=== PATIENT | female | born 1970 | race Asian ===

== ENCOUNTER → 2022-02-16 12:52 | Outpatient (CLI) | payer OTHER, SELFPAY ==
--- NOTE | ~2022-02-16 | US_ITS ---
EXAMINATION:US venous doppler LE RT INDICATION:Right calf pain TECHNIQUE: Multiple grayscale, color flow and Doppler images of the right lower extremity deep venous systems were obtained and reviewed. COMPARISON:No prior studies for comparison. FINDINGS: The common femoral, superficial femoral and popliteal veins demonstrate normal respiratory variation, augmentation and compressibility. Color flow is also seen within the posterior tibial, pe roneal, greater saphenous and profunda veins. IMPRESSION: 1: No lower extremity deep venous thrombosis. Reviewed, dictated and finalized at location A.
== END ==
PROVIDERS: PCP Emergency Medicine; Visit Provider Emergency Medicine
DX: M79.661 Pain in right lower leg (principal)
CPT/HCPCS: 93971

== ENCOUNTER 2025-06-19 00:53 | Day surgery (SDC) | payer OTHER, SELFPAY ==
[2025-06-18 10:27] VITALS: BMI 21.3
[2025-06-19 11:22] VITALS: BP 111/70; PULSE 74; RESP 16; TEMP 36; O2SAT 100
[2025-06-19] MEDS: LACTATED RINGERS 1,000 ML 150 ML IV CONT (11:29)
--- NOTE | 2025-06-19 11:34 | P.PNAN_ITS ---
Anes - Initial Pre Proc Eval Procedure: Operation Date: 06/19/25 12:30 Proposed Procedures p Esophagogastroduodenoscopy - Mark Deluna MD Date/Time: 06/19/25 11:34 Surgeon: Mark Deluna MD Pre Op Diagnosis: Gastro-esophageal reflux disease without esophagit Patient Data Age: 55 Gender: F Height: 1.65 m Weight: 57.7 kg Last Vital Signs Temp 36.0 C L 06/19/25 11:22 Pulse 74 06/19/25 11:22 Resp 16 06/19/25 11:22 BP 111/70 06/19/25 11:22 Pulse Ox 100 06/19/25 11:22 O2 Del Method Room Air 06/19/25 11:22 Allergies Allergy/AdvReac Type Severity Reaction Status Date / Time No Known Allergies Allergy Verified 06/19/25 11:20 Home Medications ?Medication ?Instructions ?Recorded ?Confirmed ?Type No Home Medications 06/18/25 06/18/25 H istory Patient hx anesthesia problems: none Family hx anesthesia problems: none Results Review: All pre-operative results and documents have been reviewed as part of the pre- operative evaluation. [facility] Social History Social History Smoking status: Never smoker Substance use type: does not use Living arrangements: with family Spiritual care concerns: No Anes - Eval Final PreProcedure Day of Procedure 06/19/25 11:34 Patient weight: normal Heart: regular rate and rhythm Lungs: clear to auscultation Airway: Mallampati scale class II Neurological: alert and oriented Last oral intake: >/= 8 hours ASA classification: I Emergent: no Anesthetic plan: proceed Anesthesia type and monitoring: general GIVS and standard monitoring Results Review: All pre-operative results and documents have been reviewed as part of the pre- operative evaluation. Informed Consent: The patient's anesthetic plan and its attendant risks and benefits were discussed with the patient/family/POA. Questions were solicited and answers provided to the satisfaction of the patient/family/POA.
--- NOTE | 2025-06-19 11:49 | P.HP_ITS ---
History of Present Illness History of Present Illness Consent: Risks, benefits, and alternatives have been discussed and questions answered. Patient agrees to proceed with procedure. Chief complaint: Gastro-esophageal reflux disease without esophagit Narrative: Soraya Olson is a 55 year old female here for first egd, h/o epigastric pain Review of Systems Review of Systems: All systems reviewed & are unremarkable except as noted in HPI and below PMFSH Past Medical History Medical History (Updated 06/19/25 @ 11:50 by Mark Deluna MD) Epigastric pain Social History Social History Smoking status: Never smoker Substance use type: does not use Living arrangements: with family Spiritual care concerns: No Meds Home Medications and Allergies Home Medications ?Medication ?Instructions ?Recorded ?Confirmed ?Type No Home Medications 06/18/25 06/18/25 H istory Allergies Allergy/AdvReac Type Severity Reaction Status Date / Time No Known Allergies Allergy Verified 06/19/25 11:20 Vital Signs Vital Signs - 24 hr 06/19/25 11:22 Temperature 96.8 F L Pulse Rate 74 Respiratory Rate 16 Blood Pressure 111/70 Pulse Oximetry 100 Oxygen Delivery Room Air Exam Const: General: comfortable and no acute distress HENMT: Face/Nose/Sinus: Normal nares present Eyes: General: appearance normal, both eyes and all related structures Resp: Auscultation: clear to auscultation bilaterally Cardio: Rate: regular rate Rhythm: regular rhythm GI: Inspection: non-distended GI Palp: Yes Soft to palpation Skin: General skin exam: normal color Extrem: General: normal to inspection Psych: Mental Status: mental status grossly normal Assessment and Plan Assessment and plan (1) Epigastric pain: Code(s): R10.13 - Epigastric pain Status: Acute Assessment and Plan: egd
--- NOTE | 2025-06-19 11:56 | S_PTH ---
PATIENT: Soraya Olson LOC: [facility]#:[id number] AGE/SX: 55/F ROOM: RE06/19/[address]: Mark Deluna MD : 1970 BED: DIS: 06/19/2025 SPEC #: [id number] RECD: 06/19/25 12:46 STATUS: MICAELA REQ #: [id number] VINITA: 06/19/25 11:[address]: Mark Deluna DEPT: [facility] Surgical RECD BY: Louisa Fitzgerald ENTERED: 06/19/25 12:47 SP TYPE: Surgical OTHR DR: Leonard Vega MD Tissues: A - Esophageal Biopsy B - Gastric Biopsy C - Small Bowel Bx Procedures: Hematoxylin and Eosin Stain Gross and Microscopic Level 4
[2025-06-19 11:57] VITALS: BP 98/62; PULSE 80; RESP 16; O2SAT 99
[2025-06-19 12:07] VITALS: BP 88/64; PULSE 79; RESP 19; O2SAT 100
[2025-06-19 12:17] VITALS: BP 97/65; PULSE 68; RESP 15; O2SAT 100
== END 2025-06-19 12:25 | disposition home or self-care (01) ==
PROVIDERS: PCP Emergency Medicine; Referring Provider Emergency Medicine; Visit Provider Internal Medicine Gastroenterology
PROC: 0DJ08ZZ Inspection of Upper Intestinal Tract, Via Natural or Artificial Opening Endoscopic (ICD-10-PCS; CPT 43239; principal; 2025-06-19 12:30)
DX: K21.00 Gastro-esophageal reflux disease with esophagitis, without bleeding (principal)
CPT/HCPCS: 43239; 88305; J2704; J7120